=== PATIENT | female | born 1980 | race Caucasian/White ===

== ENCOUNTER 2023-09-26 08:29 | Outpatient (CLI) | payer OTHER, SELFPAY ==
--- OUTSIDE RECORDS SUMMARY | 2023-09-27 07:12 | XMS_ITS | Clinical Summary ---
Author Name Unknown Organization [facility] Address [place], [place] [address] Care Team Providers Care Form Raiser Name Role Phone Poli Avitia MD Primary Care Provider [phone] Allergies Active Allergy Reactions Criticality Noted Date Comments Penicillins Hives Sertraline Shortness Of Breath 04/02/2016 Medications Medication Sig Dispensed Refills Start Date End Date Status albuterol HFA (PRO-AIR,VENTOLIN,PRO VENTIL) 90 mcg/actuation inhalerIndications:Pn eumonia of left lower lobe due to infectious organism,Cough Inhale 2 Puffs by mouth every 4 hours if needed for Wheezing. Wait until they call for this. 1 Inhaler 3 09/16/2015 Active ranitidine (ZANTAC) 150 mg tabletIndications:Cou gh,Gastroesophageal reflux disease, esophagitis presence not specified Take 1 tablet by mouth 2 times daily. 60 tablet 6 09/16/2015 Active loratadine (CLARITIN) 10 mg tablet Take 1 tablet by mouth once daily. 0 11/11/2015 Active QIQ69-BL-tg6-pje-qmf- fish oil ( GUMMY) 400 mcg-35 mg -25 mg-5 mg chew Take by mouth. 0 11/11/2015 Acti ve cholecalciferol (VITAMIN D-3) 2,000 unit capsule Take 1 capsule by mouth once daily. 0 02/27/2016 Active metFORMIN (GLUCOPHAGE) 500 mg tabletIndications:Ges tational diabetes mellitus (GDM) in third trimester controlled on oral hypoglycemic drug Take 1 tablet by mouth 2 times daily with meals. 60 tablet 1 04/09/2016 Active busPIRone (BUSPAR) 5 mg tabletIndications:Anx iety state Take 2 tablets by mouth 2 times daily. 120 tablet 3 04/09/2016 Active Active Problems Problem Noted Date Diagnosed Date Encounter for supervision of other normal , third trimester 02/27/2016 Overview: TDAP 02/27/2016 Kristel Graham D.O. 02/27/2016 11:35 AM Upper back radiating to left arm 04/02/2011 Vitamin D deficiency 08/18/2009 Other acne 12/02/2006 Anxiety state, unspecified 12/02/2006 Resolved Problems Problem Noted Date Diagnosed Date Resolved Date care in third trimester 02/14/2016 02/27/2016 GBS (group B Streptococcus c arrier), +RV culture, currently 09/22/2014 04/20/2015 Subchorionic hemorrhage 04/09/201404/10 Overview: Normal follow up ultrasound on 06/18/14. Supervision of other normal 12/01/2012 04/20/2015 Overview: MYAH of 06/22/2013 based on 6 wk ultrasound (did not use LMP due to irregular periods. Received a flu shot 03/30/14 Supervision of normal first 11/15/2010 01/03/2013 Immunizations Name Administration Dates Next Due Hepatitis B (Adult) 12/31/2008,08/01/2004,2003 Influenza, IIV3 (Age >=3 years) 03/19/2016,04/16 Influenza, Intradermal Inactivated 03/24/2015 Tdap 02/27/2016, 5,04/17/2013,08/04/19 11 Family History Medical History Relation Name Comments Alcohol/Drug Father Asthma Father black lung dise ase also Diabetes Maternal Grandfather Heart Disease Maternal Grandfather Cancer Maternal Grandmother Cancer-breast Maternal Grandmother breast cancer age 86 Diabetes Maternal Grandmother Arthritis Mother Diabetes Mother also has PAD Alcohol/Drug Paternal Grandfather Cancer-breast Paternal Grandmother Relation Name Status Comments Daughter Alive Father Alive Maternal Grandfather Maternal Grandmother Mother Alive Paternal Grandfather Paternal Grandmother Alive Sister Alive Social History Tobacco Use Types Packs/Day Years Used Date Smoking Tobacco: Never Smokeless Tobacco: Never Tobacco Cessation:Counseling Given: Yes Alcohol Use Standard Drinks/Week Comments No 1.7 (1 standard drink = 0.6 oz p ure alcohol) Sex and Gender Information Value Date Recorded Sex Assigned at Not on file Gender Identity Not on file Sexual Orientation Not on file Obstetrics History Para Term AB IAB SAB Ectopic Multiple Livin g Live Births 4 3 3 0 0 0 0 0 0 3 1 Date Outcome GA Total Labor Labor/2nd/3rd Weight Sex Delivery Anes PTL Loida A1 A5 Name Cl in 05/16 Term 37w 6d 12h 00m/ 3.09 kg (6 lb 13 oz) F Vag None Stephanie Comments:System Genera angel. Please review and update details. 06/09 Term 37w 0d 5h 00m/ 3.35 kg (7 lb 6 oz) M Vag None [place] Comments:System Genera angel. Please review and update details. 10/20 Term 40w 1d 4.14 kg (9 lb 2 oz) M VAGINAL VACU None Pascale ng 9 9 Last Filed Vital Signs Vital Sign Reading Time Taken Comments Blood Pressure 121/81 05/15/2016 1:02 PM HEMATOLOGY SPECIALIST Pulse 96 05/15/2016 1:02 PM HEMATOLOGY SPECIALIST Temperature 36.6 ??C (97.9 ??F) 04/02/2016 9:16 AM CD T Respiratory Rate - - Oxygen Saturation 100% 05/15/2016 1:02 PM HEMATOLOGY SPECIALIST Inhaled Oxygen Concentration - - Weight 95.2 kg (209 lb 12.8 oz) 05/15/2016 1:02 PM HEMATOLOGY SPECIALIST Height 163 cm (5' 4.17) 04/16/2016 7:43 AM HEMATOLOGY SPECIALIST Body Mass Index 35.82 04/16/2016 7:43 AM HEMATOLOGY SPECIALIST Plan of Treatment Health Maintenance Due Date Last Done Comments Depression screening for age 12+ 03/26/2017 03/26/2016, 08/15/2015 BMI (ht and wt on same day) for age 18+ 04/16/2017 04/16/2016, 01/16/2016, 12/19/2015, Additional history exists Pap test for age 21-65 08/22/2020 8, 08/22/2017, 12/01/2014, Additional history exists COVID-19 vaccine series ( season) 2023 Influenza for age 9-49 02/09/2024 6, 03/24/2015, 04/16/2011 Tetanus booster 02/26/2026 02/27/2016, 07/12, 04/17/2013, Additional history exists Hepatitis C screening for age 18-79 Completed 08/04/2010 HIV for age 15-65 Completed 11/11/2015, , 09/22/2010, Additional history exists Tdap Completed 02/27/2016, 07/12, 04/17/2013, Additional history exists Pneumococcal series for age 6-64 Aged Out No longer eligible based on patient's age to complete this topic Procedures Procedure Name Priority Date/Time Associated Diagnosis Comments FILAMENT WELDER THIN PREP PAP SCREEN IMAGED Routine 08/22/2017 9:22 AM CDT ANTI HIV 1/2 Routine 11/11/2015 11:18 AM CDT Encounter for supervision of other normal ANTI HCV Routine 08/04/2010 10:58 AM HEMATOLOGY SPECIALIST Needlestick injury accident from Last 3 Months or Most Recently Relevant to Health Maintenance Results * FILAMENT WELDER THIN PREP PAP SCREEN IMAGED (08/22/2017 9:22 AM CDT) Case Report Gynecologic Cytology Report ? Case: [id number] ? Authorizing Provider: ??Edda Burgos MD ? Collected: ? 08/22/201722 ? First Screen: ?Glenna Arrington ?Received: ?08/23/2017 1453 ? Specimen: ?FILAMENT WELDER ThinPrep Vial Screening, Cervical/Vaginal ? 08/28/2017 3:30 PM CDT [facility] INTERPRETATION/ RESULT NEGATIVE FOR INTRAEPITHELIAL LESION OR MALIGNANCY (NIL) (none) 08/28/2017 3:30 PM CDT [facility] IMEN ADEQUACY Satisfactory for evaluation Endocervical component present 08/28/2017 3:30 PM CDT [facility] HPV REQUEST HPV and PAP 08/28/2017 3:30 PM CDT [facility] Last Pap Date 12/02/2014 08/28/2017 3:30 PM CDT [facility] Last Pap Result NIL 8 3:30 PM CDT [facility] Menstrual Status 08/28/2017 3:30 PM CDT [facility] Automated Review Successful 08/28/2017 3:30 PM CDT [facility] Comment:Specimen processed s uccessfully by automated ehs teacher device, ThinPrep Imaging System, [employer] ANCILLARY TESTING FILAMENT WELDER HPV Ordered, Please see separate report 08/28/2017 3:30 PM CDT [facility] Note The pap test is a screening technique, not a diagnostic procedure. ??It is used primarily to screen for squamous cancers and precursor lesions. ??Published studies have shown that it is subject to both false negative and false positive results. ??The pap test should not be used as the sole means to diagnose or exclude pre-malignant and malignant lesions. Interpreted at [facility] (Central Lab, [facility], [facility], [facility], [facility], [facility], [facility]) 08/28/2017 3:30 PM CDT [facility] Other (Cervical/Vagina l) 08/22/2017 9:22 AM CDT 08/23/2017 2:53 PM CDT Edda Burgos MD PATHOLOGY/CYTOLOG Y [facility] [address] [place] [address], [place] * ANTI HIV 1/2 [48127.0] (11/11/2015 11:18 AM CDT) HIV-1/HIV-2 ANTIBODY Non-Reacti ve Non-Reacti ve 11/11/2015 7:33 PM CDT [facility] Blood specimen (specimen) BLOOD SPECIMEN / Unknown Venipuncture / Unknown 11/11/2015 11:18 AM CDT 11/11/2015 11:18 AM CDT Narrative [facility] - 11/11/2015 7:33 PM CDT HIV-1 p24 and HIV-1/HIV-2 Ab not detected Poli Avitia MD SEND OUTS [facility] [address] [place] [address], [place] * ANTI HCV (08/04/2010 10:58 AM HEMATOLOGY SPECIALIST) ANTI HCV Non-reacti ve [facility] Blood specimen (specimen) BLOOD SPECIMEN / Unknown 08/04/2010 10:58 AM HEMATOLOGY SPECIALIST 08/04/2010 10:53 AM HEMATOLOGY SPECIALIST Lauren James NP SEND OUTS [facility] [place]NAL ZIP [address] [address] from Last 3 Months or Most Recently Relevant to Health Maintenance Care Teams Form Raiser Relationship Specialty Start Date End Date Poli Avitia MD [address] [place] [address] PCP - General Family Practice 06/30/12
== END 2023-09-26 08:30 | disposition home or self-care (01) ==
LOC: NFLDREF 09-27 07:09
PROVIDERS: PCP Family Medicine; Referring Provider Family Medicine; Visit Provider Family Medicine
DX: Z13.220 Encounter for screening for lipoid disorders (principal); Z13.1 Encounter for screening for diabetes mellitus
CPT/HCPCS: 80061; 82947

== ENCOUNTER 2024-02-28 13:00 | Outpatient (CLI) | payer OTHER, SELFPAY ==
--- OUTSIDE RECORDS SUMMARY | 2024-02-28 13:04 | XMS_ITS | Clinical Summary ---
Author Organization [facility] Address [place], [place] [address] Care Team Providers Care Home Appliance Washing Machine Mechanic Name Role Phone Poli Avitia MD Primary Care Provider +1- [phone] Allergies Active Allergy Reactions Criticality Noted Date [...] by mouth once daily. 0 11/11/2015 Active UAA90-BG-fw1-erz-dtr- fish oil ( GUMMY) 400 mcg-35 mg [...] of other normal , third trimester 02/27/2016 Overview (02/27/2016): TDAP 02/27/2016 Kristel Graham D.O. 02/27/2016 11:35 AM Upper back radiating to left arm 04/02/2011 Vitamin D deficiency 08/18/2009 Other acne 12/02/2006 Anxiety state, unspecified 12/02/2006 Resolved Problems Problem Noted Date Diagnosed Date Resolved Date care in third trimester 02/14/2016 02/27/2016 GBS (group B Streptococcus c arrier), +RV culture, currently 09/22/2014 04/20/2015 Subchorionic hemorrhage 04/09/201404/10 Overview (07/12/2014): Normal follow up ultrasound on 06/18/14. Supervision of other normal 12/01/2012 04/20/2015 Overview (05/17/2014): MYAH of 06/22/2013 based on 6 wk [...] Outcome GA Total Labor Labor/2nd/3rd Weight Sex Type Anes PTL Loida A1 A5 Name Clin 2010 Term 37w 6d 12h 00m/ 3.09 kg (6 lb 13 oz) F Vag None Stephanie Comments:System Genera angel. Please review and update details. 2012 Term 37w 0d 5h 00m/ 3.35 kg (7 lb 6 oz) M Vag None Emmanuel Comments:System Genera angel. Please review and update details. 2014 Term 40w 1d 4.14 kg (9 lb 2 oz) M VAGINA L VACU None Livin g 9 9 Last Filed Vital Signs Vital Sign Reading Time Taken Comments Blood Pressure 121/81 05/15/2016 1:02 PM TUBE LASER OPERATOR Pulse 96 05/15/2016 1:02 PM TUBE LASER OPERATOR Temperature 36.6 ??C (97.9 ??F) 04/02/2016 9:16 AM CD T Respiratory Rate - - Oxygen Saturation 100% 05/15/2016 1:02 PM TUBE LASER OPERATOR Inhaled Oxygen Concentration - - Weight 95.2 kg (209 lb 12.8 oz) 05/15/2016 1:02 PM TUBE LASER OPERATOR Height 163 cm (5' 4.17) 04/16/2016 7:43 AM TUBE LASER OPERATOR Body Mass Index 35.82 04/16/2016 7:43 AM TUBE LASER OPERATOR Plan of Treatment Health Maintenance Due Date Last Done Comments Depression screening for age 12+ 03/26/2017 03/26/2016, 08/15/2015 BMI (ht and wt on same day) for age 18+ 04/16/2017 04/16/2016, 01/16/2016, 12/19/2015, Additional history exists Pap test for age 21-65 08/22/2020 8, 08/22/2017, 12/01/2014, Additional history exists COVID-19 vaccine series ( season) 2024 Influenza for age 9-49 02/09/2024 6, 03/24/2015, [...] Procedure Name Priority Date/Time Associated Diagnosis Comments OIL FIELD CASER THIN PREP PAP SCREEN IMAGED Routine 08/22/2017 9:22 AM CDT ANTI HIV 1/2 Routine 11/11/2015 11:18 AM CDT Encounter for supervision of other normal ANTI HCV Routine 08/04/2010 10:58 AM TUBE LASER OPERATOR Needlestick injury accident from Last 3 Months or Most Recently Relevant to Health Maintenance Results * OIL FIELD CASER THIN PREP PAP SCREEN IMAGED (08/22/2017 9:22 AM CDT) Case Report Gynecologic Cytology Report ? Case: [id number] ? Authorizing Provider: ??Edda Burgos MD ? Collected: ? 08/22/2017 0922 ? First Screen: ?Glenna Arrington ?Received: ?08/23/2017 1453 ? Specimen: ?OIL FIELD CASER ThinPrep Vial Screening, Cervical/Vaginal ? 08/28/2017 3:30 PM CDT [facility] INTERPRETATION/ RESULT NEGATIVE FOR INTRAEPITHELIAL LESION OR MALIGNANCY (NIL) (none) 08/28/2017 3:30 PM CDT [facility] IMEN ADEQUACY Satisfactory for evaluation Endocervical component present 08/28/2017 3:30 PM CDT [facility] HPV REQUEST HPV and PAP 08/28/2017 3:30 PM CDT [facility] Last Pap Date 12/02/2014 08/28/2017 3:30 PM CDT [facility] Last Pap Result NIL 8 3:30 PM CDT [facility] Menstrual Status 08/28/2017 3:30 PM CDT [facility] Automated Review Successful 08/28/2017 3:30 PM CDT [facility] Comment:Specimen processed s uccessfully by automated senior security architect device, ThinPrep Imaging System, [employer] ANCILLARY TESTING OIL FIELD CASER HPV Ordered, Please see separate report 08/28/2017 3:30 PM T [facility] Note The pap test is a screening technique, not a diagnostic procedure. ??It is used primarily to screen for squamous cancers and precursor lesions. ??Published studies have shown that it is subject to both false negative and false positive results. ??The pap test should not be used as the sole means to diagnose or exclude pre-malignant and malignant lesions. Interpreted at [facility] (Central Lab, [facility], [facility], [facility], [facility], [facility], [facility]) 08/28/2017 3:30 PM T [facility] Other (Cervical/Vagina l) 08/22/2017 9:22 AM CDT 08/23/2017 2:53 PM CDT Edda Burgos MD PATHOLOGY/CYTOLOG Y [facility] [address] [place] [address], [place] * ANTI HIV 1/2 [90497.0] (11/11/2015 11:18 AM CDT) HIV-1/HIV-2 ANTIBODY Non-Reacti ve Non-Reacti ve 11/11/2015 7:33 PM CDT [facility] Blood specimen (specimen) BLOOD SPECIMEN / Unknown Venipuncture / Unknown 11/11/2015 11:18 AM CDT 11/11/2015 11:18 AM CDT Narrative [facility] - 11/11/2015 7:33 PM CDT HIV-1 p24 and HIV-1/HIV-2 Ab not detected Poli Avitia MD SEND OUTS [facility] [address] [place] [address], [place] * ANTI HCV (08/04/2010 10:58 AM TUBE LASER OPERATOR) ANTI HCV Non-reacti ve [facility] Blood specimen (specimen) BLOOD SPECIMEN / Unknown 08/04/2010 10:58 AM TUBE LASER OPERATOR 08/04/2010 10:53 AM TUBE LASER OPERATOR Lauren James NP SEND OUTS [facility] [place]NAL ZIP [phone] [place] [address] from Last 3 Months or Most Recently Relevant to Health Maintenance Care Teams Home Appliance Washing Machine Mechanic Relationship Specialty Start Date End Date Poli Avitia MD [address] [place] [address] PCP - General Family Practice 06/30/12
--- NOTE | 2024-02-28 13:20 | CRLHL7_ITS ---
For Patients: As a result of the Century Cures Act, medical imaging exams and procedure reports are released immediately into your electronic medical record. You may view this report before your referring provider. If you have questions, please contact your health care provider. BILATERAL SCREENING MAMMOGRAM WITH COMPUTER-AIDED DETECTION AND TOMOSYNTHESIS TECHNIQUE: CC and MLO views were obtained. These mammographic images have been obtained using full-field digital technique. These mammographic images were interpreted with the benefit of computer-aided detection. Breast Tomosynthesis was used in this interpretation. COMPARISON FILM: Baseline. FINDINGS: There are scattered areas of fibroglandular density IMPRESSION: There is no radiographic evidence for malignancy. ASSESSMENT: BI-RADS Category 1: Negative RECOMMENDATION: Routine screening mammogram in 1 year. A lay language report of this examination will be provided to the patient. Alf Mitchell M.D. Diagnostic Radiologist [email or web address] JOE/Dictated by: Alf Mitchell MD @ 03/10/2024 10:53:00 AM (Electronically Signed)
== END 2024-02-28 13:01 | disposition home or self-care (01) ==
LOC: MAMMO 13:01
PROVIDERS: PCP Family Medicine; Visit Provider Family Medicine
DX: Z12.31 Encounter for screening mammogram for malignant neoplasm of breast (principal)
CPT/HCPCS: 77063; 77067

== ENCOUNTER 2024-10-06 08:40 | Outpatient (CLI) | payer MEDICAID, SELFPAY | END 2024-10-06 08:41 | disposition home or self-care (01) | LOC: NFLDREF 10-07 00:50 | PROVIDERS: PCP Family Medicine; Referring Provider Family Medicine; Visit Provider Family Medicine | DX: Z13.1 Encounter for screening for diabetes mellitus (principal); Z86.32 Personal history of gestational diabetes | CPT/HCPCS: 82947 ==

== ENCOUNTER 2024-10-20 13:19 | Outpatient (CLI) | payer MEDICAID, SELFPAY ==
[2024-10-22 02:23] LABS: HPV Source Cervix; HPV, High Risk by TMA Not Detected
== END 2024-10-20 13:20 | disposition home or self-care (01) ==
PROVIDERS: PCP Family Medicine; Visit Provider Physician Assistant
DX: Z12.4 Encounter for screening for malignant neoplasm of cervix (principal); Z11.51 Encounter for screening for human papillomavirus (HPV)
CPT/HCPCS: 87624; 87625; 88141; 88142